=== PATIENT | female | born 1980 | race Two or more races ===

== ENCOUNTER 2017-07-16 19:37 | Emergency (ER) | payer MEDICAID ==
[~2017-07-16] VITALS: Ht 160 cm; Wt 59.0 kg
[2017-07-17] VITALS: BP 155/90
[2017-07-17] MEDS ORDERED: KETOROLAC TROMETH 60MG/2ML VIAL IM ONE (00:30)
== END 2017-07-17 01:00 | disposition home or self-care (01) ==
LOC: ER 19:37
DX: R51 Headache (principal)
CPT/HCPCS: 70450; 81025; 96372; 99285; J1885

== ENCOUNTER 2025-01-03 17:32 | Emergency (ER) | payer MEDICAID ==
[~2025-01-03] VITALS: Ht 160 cm; Wt 58.5 kg
[2025-01-03 19:18] LABS: Nucleated Red Blood Cells % 0.0 %
[2025-01-03 19:19] LABS: Hematocrit 34.9 % (36.0-46.0); Hemoglobin 11.0 g/dL (12.2-16.2); Mean Corpuscular Hemoglobin 22.4 pg (28.0-32.0); Mean Corpuscular Volume 70.9 fL (80.0-100.0)
[2025-01-03 19:27] LABS: Chloride 104 mmol/L (98-107); Potassium 4.4 mmol/L (3.5-5.1); Sodium 139 mmol/L (136-145)
[2025-01-03 19:28] LABS: Anion Gap 11 (5-15); Carbon Dioxide 24 mmol/L (20-31)
[2025-01-03 19:29] LABS: Calcium 10.3 mg/dL (8.7-10.4)
[2025-01-03 19:33] LABS: BUN/Creatinine Ratio 10.5 (10.0-20.0); Blood Urea Nitrogen 9 mg/dL (9-23); Glucose 91 mg/dL (74-106)
--- NOTE | 2025-01-03 19:38 | ED.PDOC ---
History of Present Illness HPI Comments Patient is a 44-year-old female with no significant past medical history presented to the ED after episode of syncope. Patient reported she was apparently well until last night 2 and when she woke up in the morning her head was pounding, when she got up from the bed she felt dizzy and black out and fell on her head backwards and hit her occipital part of the head. The fall was unwitnessed with the patient did not report of any urinary or fecal incontinence, no confusion when she woke up after about 30 seconds. Patient denies any history of urinary frequency, urgency, burning pain on urination in the last week, no cough, no diarrhea. After the fall patient has started to have headache in the back of the head which was worsening due to which she came to the hospital for further evaluation. Patient denied any blurred vision, no focal weakness, no difficulty swallowing or speech. Chief Complaint: Syncope Time Seen by MD: 18:51 Primary Care Provider: NONE Allergies: Coded Allergies: Codeine (Verified Allergy, Severe, 12/15/13) Sumatriptan (Verified Allergy, Severe, 12/15/13) Aspirin (Verified Allergy, Unknown, 12/13/13) Uncoded Allergies: CODIENE (Allergy, Unknown, 12/13/13) Mode of Arrival: Ambulatory Past Medical History PAST MEDICAL HISTORY: Denies Surgical History: Cholecystectomy, (To) OCC THERAPIST History: No Pertinent OCC THERAPIST History Family History Family History: Unknown Social History Smoker: Non-Smoker Alcohol: Denies ETOH Use Drugs: Denies Drug Use Lives In: Home Constitutional: denies: chills, diaphoresis, fatigue, fever, malaise, sweats, weakness, others EENTM: denies: blurred vision, double vision, ear bleeding, ear discharge, ear drainage, ear pain, ear ringing, eye pain, eye redness, hearing loss, mouth pain, mouth swelling, nasal discharge, nose bleeding, nose congestion, nose pain, photophobia, tearing, throat pain, throat swelling, voice changes, others Respiratory: denies: cough, hemoptysis, orthopnea, SOB at rest, shortness of breath, SOB with excertion, stridor, wheezing, others Cardiovascular: denies: chest pain, dizzy spells, diaphoresis, Dyspnea on exertion, edema, irregular heart beat, left arm pain, lightheadedness, palpitations, PND, syncope, others Gastrointestinal: denies: abdomen distended, abdominal pain, blood streaked bowels, constipated, diarrhea, dysphagia, difficulty swallowing, hematemesis, melena, nausea, poor appetite, poor fluid intake, rectal bleeding, rectal pain, vomiting, others Genitourinary: denies: abnormal vagina bleeding, burning, dyspareunia, dysuria, flank pain, frequency, hematuria, incontinence, pain, , vagina discharge, urgency, others Neurological: reports: headache (Back of the head) Musculoskeletal: denies: back pain, gout, joint pain, joint swelling, muscle pain, muscle stiffness, neck pain, others Integumetry: denies: bruises, change in color, change in hair/nails, dryness, laceration, lesions, lumps, rash, wounds, others Allergic/Immunocompromised: denies: Difficulty Healing, Frequent Infections, Hives, Itching, others Hematologic/Lymphatic: denies: anemia, blood clots, easy bleeding, easy bruising, swollen glands, others Endocrine: denies: excessive hunger, excessive sweating, excessive thirst, excessive urination, flushing, intolerance to cold, intolerance to heat, unexplained weight gain, unexplained weight loss, others Psychiatric: denies: anxiety, bipolar disorder, depression, hopeless, panic disorder, schizophrenia, sleepless, suicidal, others Physical Exam General Appearance: No Apparent Distress, Normal HEENT: Normal ENT Inspection, Pharynx Normal, TMs Normal Neck: Full Range of Motion, Non-Tender, Normal, Normal Inspection Respiratory: Chest Non-Tender, Lungs Clear, No Accessory Muscle Use, No Respiratory Distress, Normal Breath Sounds Cardiovascular: No Edema, No JVD, No Murmur, No Gallop, Normal Peripheral Pulses, Regular Rate/Rhythm Breast Exam: Deferred Gastrointestinal: No Organomegaly, Non Tender, No Pulsatile Mass, Normal Bowel Sounds, Soft Genitalia: Deferred Pelvic: Deferred Rectal: Deferred Extremities: No calf tenderness, Normal capillary refill, Normal inspection, Normal range of motion, Non-tender, No pedal edema Neurologic: Alert, loan review officer II-XII nml as Tested, No Motor Deficits, Normal Affect, Normal Mood, No Sensory Deficits Cerebellar Function: Normal Reflexes: Normal Skin: Dry, Normal Color, Warm Peripheral Pulses: 2+ carotid (R), 2+ carotid (L), 2+ femoral (R), 2+ femoral (L), 2+ dorsalis pedis (R), 2+ dorsalis pedis (L), 2+ Radial (R), 2+ Radial (L) Lymphatic: No Adenopathy Was a procedure done? Was a procedure done?: No Differential Dx Considerations may include: Headache, concussion, syncope probably vasovagal, rule out acute stroke, orthostatic hypotension X-Ray, Labs, Meds, VS Vital Signs Date Time Temp Pulse Resp B/P (MAP) Pulse Ox O2 Delivery O2 Flow Rate FiO2 01/03/25 18:24 97.9 104 18 118/90 (99) 98 97.9 Lab Test 01/03/25 19:16 01/03/25 19:01 Range/Units Urine Test Negative Negative White Blood Count 7.0 4.4-10.8 10^3/uL Red Blood Count 4.92 4.0-5.20 10^6/uL Hemoglobin 11.0 L 12.2-16.2 g/dL Hematocrit 34.9 L 36.0-46.0 % Mean Corpuscular Volume 70.9 L 80.0-100.0 fL Mean Corpuscular Hemoglobin 22.4 L 28.0-32.0 pg Mean Corpuscular Hemoglobin Concent 31.6 L 32.0-36.0 g/dL Red Cell Distribution Width 18.6 H 11.8-14.3 % Platelet Count 351 140-450 10^3/uL Mean Platelet Volume 7.6 6.9-10.8 fL Neutrophils (%) (Auto) 64.1 37.0-80.0 % Lymphocytes (%) (Auto) 28.7 10.0-50.0 % Monocytes (%) (Auto) 6.0 0.0-12.0 % Eosinophils (%) (Auto) 0.3 0.0-7.0 % Basophils (%) (Auto) 0.9 0.0-2.0 % Neutrophils # (Auto) 4.5 1.6-8.6 10 ^3/uL Lymphocytes # (Auto) 2.0 0.4-5.4 10 ^3/uL Monocytes # (Auto) 0.4 0-1.3 10 ^3/uL Eosinophils # (Auto) 0 0-0.8 10 ^3/uL Basophils # (Auto) 0.1 0-0.2 10 ^3/uL Nucleated Red Blood Cells 0.0 % Sodium Level 139 136-145 mmol/L Potassium Level 4.4 3.5-5.1 mmol/L Chloride Level 104 98-107 mmol/L Carbon Dioxide Level 24 20-31 mmol/L Anion Gap 11 5-15 Blood Urea Nitrogen 9 9-23 mg/dL Creatinine 0.86 0.550-1.02 mg/dL Glomerular Filtration Rate Calc 85 >90 mL/min BUN/Creatinine Ratio 10.5 10.0-20.0 Serum Glucose 91 74-106 mg/dL Calcium Level 10.3 8.7-10.4 mg/dL Current Medications Medications (Trade) Dose Ordered Sig/Marcelino Route Start Time Stop Time Status Last Admin Ketorolac Tromethamine (Toradol Injection) 15 mg ONCE ONCE IV 01/03/25 19:00 01/03/25 19:01 DC 01/03/25 21:58 44-year-old female patient came to the hospital after episode of syncope and hitting her head on the back with a fall after the syncope. Complaint of worse alex headaches since the morning located in the back of the head. Head CT was done which did not show any acute intracranial abnormality. Initial lab investigations including CBC showed microcytic hypochromic anemia with the elevated RDW suggesting iron-deficiency coinciding with patient's history of heavy menstrual bleeding. Patient is a advised to drink plenty of water and kassidy p hydrated, visit her PCP. Patient was given 1 dose of Toradol IV and it help improve the headache. Was advised to take [id number] ibuprofen as needed for pain relief. She does not report of any dizziness, blurred vision, focal weakness. Patient has been discharged in stable condition to home Time of 1ST Reevaluation: 20:39 Reevaluation 1ST: Unchanged Time of 2ND Reevaluation: 10:15 Reevaluation 2ND: Improved Patient Education/Counseling: Diagnosis, Treatment, Prognosis Family Education/Counseling: No Family Present SEPSIS Sepsis Screen Date sepsis recognized/suspect: Jan 03, 2025 Time Sepsis recognized/suspect: 1816 Recent Procedure: No On Antibiotic Therapy: No Respiratory Rate >20: No Heart Rate >90: Yes Temp<36 C (96.8 F) or >38.3 C: No SBP <90 or MAP <65 mmHG: No New Acute Mental Status Change: No Is the patient on CPAP, BIPAP,: No Physician Orders Heplock Iv (01/03/25 ) Head Without Contrast (01/03/25 19:35) Vital Signs Date Time Temp Pulse Resp B/P (MAP) Pulse Ox O2 Delivery O2 Flow Rate FiO2 01/03/25 18:24 97.9 104 18 118/90 (99) 98 97.9 Laboratory Tests Test 01/03/25 19:01 White Blood Count 7.0 10^3/uL (4.4-10.8) Medications Medications Dose Ordered Sig/Marcelino Route Start Time Stop Time Status Last Admin Dose Admin Ketorolac Tromethamine 15 mg ONCE ONCE IV 01/03/25 19:00 01/03/25 19:01 DC 01/03/25 21:58 Departure 1 Departure Time of Disposition: 10:26 Impression: Primary Impression: Syncope due to orthostatic hypotension Additional Impressions: Syncope due to autonomic failure Fall Microcytic hypochromic anemia Disposition: 01 HOME / SELF CARE / HOMELESS Condition: Stable Critical Care Note Critical Care Time?: No Stability Stability form required: No Heart Score Heart Score: Heart Score Response (Comments) Value History N/A 0 EKG N/A 0 Age N/A 0 Risk Factors N/A 0 Troponin N/A 0 Total 0 KADY ANDRADE RESIDENT Jan 03, 2025 19:38
[2025-01-03] MEDS: KETOROLAC TROMETH 30 MG/ML 1ML VIAL IV ONE (21:58)
--- NOTE | 2025-01-03 22:06 | DVH ---
EXAM: CT HEAD WITHOUT CONTRAST INDICATION: syncopal episode, fall with head injury TECHNIQUE: CT of the head without intravenous contrast. Radiation Dose : 1. Head: CT Dose: CTDI volume is 52 mGy. Dose-length product is 926 mGy*cm The dose indicators for CT are the volume Computed Tomography (CT) Dose Index (CTDIvol) and the Dose Length Product (DLP), and are measured in units of mGy and mGy-cm, respectively. These indicators are not patient dose, but values generated from the CT scanner acquisition factors. The report includes radiation exposure data for exposures received during this examination. COMPARISON: None FINDINGS: There is no evidence of acute intracranial hemorrhage, extra-axial collection, mass effect, midline s hift, herniation or hydrocephalus. The ventricles, sulci and cisterns are age appropriate. The garcia-white differentiation is intact. Patchy periventricular and subcortical white matter hypoattenuation is nonspecific but may be related to small vessel ischemic disease. The visualized paranasal sinuses and mastoid air cells are clear. The surrounding soft tissues and osseous structures are unremarkable. IMPRESSION: 1. No acute intracranial abnormality. Radiation optimization: All CT scans at this facility use at least one of these dose optimization jana hniques: automated exposure control mA and/or kV adjustment per patient size (includes targeted exam s where dose is matched to clinical indication) or iterative reconstruction.
[2025-01-03 23:17] VITALS: BP 127/91; PULSE 89; RESP 18; TEMP 98; O2SAT 98
[2025-01-04] MEDS: ONDANSETRON HCL 4 MG/2 ML VIAL IV ONE (00:41)
== END 2025-01-04 00:45 | disposition home or self-care (01) ==
LOC: ER 17:32
DX: I95.1 Orthostatic hypotension (principal); D50.9 Iron deficiency anemia, unspecified; Z90.49 Acquired absence of other specified parts of digestive tract; Z88.5 Allergy status to narcotic agent; Z88.6 Allergy status to analgesic agent; W18.39XA Other fall on same level, initial encounter; Y93.89 Activity, other specified; Y92.89 Other specified places as the place of occurrence of the external cause; Y99.8 Other external cause status
CPT/HCPCS: 36415; 70450; 80048; 81025; 85025; 96374; 99285; J1885